=== PATIENT | male | born 1970 ===

== ENCOUNTER 2017-01-27 15:09 | Emergency (ER) | payer SELFPAY ==
--- NOTE | 2017-01-27 15:27 | C.PDOC ---
History Of Present Illness 47M c/o left testicle pain and swelling worsening over the last 3 days. denies fever, n/v, abd pain, dysuria. denies pmh. Time Seen by Provider: 01/27/17 15:20 Chief Complaint (Nursing): Male Genitourinary Past Medical History Vital Signs: Last Vital Signs Temp 98.4 F 01/27/17 15:25 Pulse 86 01/27/17 15:25 Resp 18 01/27/17 15:25 BP 157/90 H 01/27/17 15:25 Pulse Ox 100 01/27/17 15:25 Family History: States: Other Other Family History: nc Review Of Systems Constitutional: Negative for: Fever Gastrointestinal: Negative for: Nausea, Vomiting, Abdominal Pain Genitourinary: Negative for: Dysuria, Hematuria, Penile Discharge Physical Exam - Physical Exam Appears: Well, Non-toxic, No Acute Distress Gastrointestinal/Abdominal: Soft, No Tenderness Male Genital: Testicular Swelling (left testicle edema, mild warmth) Medical Decision Making Medical Decision Making: HISTORY: swelling pain TECHNIQUE: Realtime sonography through the scrotum with color and doppler flow. COMPARISON: None Available. FINDINGS: RIGHT TESTICLE: Right testicle measures approximately 4.3 x 2.0 x 3.7 cm. Normal echotexture and flow. RIGHT EPIDIDYMIS: Epididymal head measures approximately 1.0 x 1.0 x 1.0 cm. Grossly unremarkable appearance with normal flow. LEFT TESTICLE: Left testicle measures approximately 4.3 x 2.6 x 3.0 cm. Left testicle exhibits normal echotexture although increased arterial flow. Left testicle however is surrounded by a complex septated hydrocele. Findings are consistent with orchitis LEFT EPIDIDYMIS: Epididymal head is mildly enlarged measuring approximately 1.6 x 2.3 x 2.5 cm. Increased arterial flow consistent with epididymitis. HYDROCELE: As above. VARICOCELE: Probable bilateral varicoceles. OTHER FINDINGS: None. IMPRESSION: Left-sided epididymo-orchitis. Complex left-sided hydrocele. Probable bilateral varicoceles. Disposition - Disposition Referrals: [facility] [Outside] Disposition: HOME/ ROUTINE Disposition Time: 17:33 Condition: STABLE Additional Instructions: Please follow up in the clinic. They can refer you to a urologic specialist. Wear supportive underwear for comfort. Return to the ER for any worsening symptoms or for any other concerns. Prescriptions: Levofloxacin [Levaquin] 500 mg PO DAILY #10 tablet Instructions: Epididymitis (ED) Forms: Gen Discharge Inst Salvadorean, [facility] (Turkmen) Print Language: NAMIBIAN - Clinical Impression Clinical Impression: Epididymitis
[2017-01-27 15:40] VITALS: RESP 18; TEMP 98.4; O2SAT 100; BMI 28.1
[2017-01-27 15:46] LABS: URINE BILIRUBIN NEGATIVE (NEGATIVE); URINE BLOOD 2+ (NEGATIVE); URINE COLOR Yellow (YELLOW); URINE GLUCOSE (UA) NORMAL (Normal); URINE KETONE NEGATIVE (NEGATIVE); URINE LEUKOCYTE ESTERASE NEG Leu/uL (Negative); URINE PROTEIN NEGATIVE (NEGATIVE); URINE UROBILINOGEN NORMAL mg/dL (0.2-1.0); WBC URINE 1 /hpf (0-5)
[2017-01-27 15:51] LABS: RBC URINE 4 /hpf (0-3)
--- NOTE | 2017-01-27 17:34 | US ---
HISTORY: swelling pain TECHNIQUE: Realtime sonography through the scrotum with color and doppler flow. COMPARISON: None Available. FINDINGS: RIGHT TESTICLE: Right testicle measures approximately 4.3 x 2.0 x 3.7 cm. Normal echotexture and flow. RIGHT EPIDIDYMIS: Epididymal head measures approximately 1.0 x 1.0 x 1.0 cm. Grossly unremarkable appearance with normal flow. LEFT TESTICLE: Left testicle measures approximately 4.3 x 2.6 x 3.0 cm. Left testicle exhibits normal echotexture although increased arterial flow. Left testicle however is surrounded by a complex septated hydrocele. Findings are consistent with orchitis LEFT EPIDIDYMIS: Epididymal head is mildly enlarged measuring approximately 1.6 x 2.3 x 2.5 cm. Increased arterial flow consistent with epididymitis. HYDROCELE: As above. VARICOCELE: Probable bilateral varicoceles. OTHER FINDINGS: None. IMPRESSION: Left-sided epididymo-orchitis. Complex left-sided hydrocele. Probable bilateral varicoceles.
[2017-01-27 17:54] VITALS: BP 151/90; PULSE 93
== END 2017-01-27 17:54 | disposition home or self-care (01) ==
LOC: C.ER 15:09
DX: N45.1 Epididymitis (principal)
CPT/HCPCS: 76870; 81001; 87086; 96372; 99284; J1885